=== PATIENT | female | born 1990 | race African-American/Black ===

== ENCOUNTER 2017-07-09 10:39 | Emergency (ER) | payer MEDICAID ==
[~2017-07-09] VITALS: Ht 154.9 cm; Wt 77.0 kg
[2017-07-09 10:44] VITALS: BP 99/64
[2017-07-09] MEDS ORDERED: ACETAMINOPHEN 325MG TABLET PO STA (11:17)
[2017-07-09 12:22] LABS: BASOPHILS % 0.6 % (0.0-2.0); EOSINOPHILS % 1.2 % (0.0-5.0); HEMATOCRIT. 39.8 % (36.0-48.0); HEMOGLOBIN. 13.7 g/dL (12.0-16.0); LYMPHOCYTES % 20.3 % (20.0-50.0); MEAN CORPUSCULAR HEMOGLOBIN 32.8 pg (28.0-32.0); MEAN CORPUSCULAR VOLUME 95.4 fL (81.0-99.0); MEAN PLATELET VOLUME 7.6 fl (7.4-10.4); MONOCYTES % 6.9 % (2.0-8.0); PLATELET 329 x1000/uL (130-400); RED BLOOD CELL COUNT 4.17 mill/uL (4.2-5.4); RED CELL DISTRIBUTION WIDTH 13.8 % (11.6-14.6)
[2017-07-09 12:25] LABS: CHLORIDE 106 mEq/L (98-107)
[2017-07-09 12:31] LABS: CARBON DIOXIDE 27 mEq/L (21-32)
[2017-07-09 12:33] LABS: HCG SCREEN NEGATIVE
[2017-07-09 12:38] LABS: CLARITY URINE CLOUDY (CLEAR); COLOR URINE YELLOW (YELLOW); KETONES URINE NEGATIVE (NEGATIVE); LEUKOCYTE ESTERASE URINE 2+ (NEGATIVE); NITRITE URINE NEGATIVE (NEGATIVE); OCCULT BLOOD URINE NEGATIVE (NEGATIVE); PH URINE 6.5 (4.5-8.0); PROTEIN URINE NEGATIVE (NEGATIVE); SPECIFIC GRAVITY URINE 1.008 (1.005-1.030); UROBILINOGEN URINE 0.2 E.U./dL (0.2-1.0)
[2017-07-09 12:56] LABS: *BARBITURATES SCREEN URINE NEGATIVE (NEGATIVE); *BENZODIAZEPINES SCREEN URINE NEGATIVE (NEGATIVE); *COCAINE SCREEN URINE NEGATIVE (NEGATIVE); CANNABINOID URINE SCREEN NEGATIVE (NEGATIVE); METHADONE URINE SCREEN NEGATIVE (NEGATIVE); OPIATES URINE SCREEN NEGATIVE (NEGATIVE); PHENCYCLIDINE URINE SCREEN NEGATIVE (NEGATIVE)
[2017-07-09 12:57] LABS: *AMPHETAMINES SCREEN URINE PRESUMTIVE POSITIVE (NEGATIVE)
== END 2017-07-09 13:49 | disposition home or self-care (01) ==
LOC: ER 10:58
DX: O26.891 Other specified pregnancy related conditions, first trimester (principal); Z3A.01 Less than 8 weeks gestation of pregnancy; F15.10 Other stimulant abuse, uncomplicated; R10.9 Unspecified abdominal pain; F17.290 Nicotine dependence, other tobacco product, uncomplicated
CPT/HCPCS: 36415; 80053; 80305; 81001; 83690; 84703; 85025; 99284

== ENCOUNTER 2017-08-20 07:28 | Emergency (ER) | payer MEDICAID ==
[~2017-08-20] VITALS: Ht 165.1 cm; Wt 55.0 kg
[2017-08-20 10:11] LABS: BASOPHILS % 0.8 % (0.0-2.0); EOSINOPHILS % 0.4 % (0.0-5.0); HEMATOCRIT. 37.8 % (36.0-48.0); HEMOGLOBIN. 12.8 g/dL (12.0-16.0); LYMPHOCYTES % 16.7 % (20.0-50.0); MEAN CORPUSCULAR HEMOGLOBIN 32.6 pg (28.0-32.0); MEAN CORPUSCULAR VOLUME 96.1 fL (81.0-99.0); MEAN PLATELET VOLUME 7.4 fl (7.4-10.4); MONOCYTES % 7.9 % (2.0-8.0); NEUTROPHILS % 74.2 % (40.0-76.0); PLATELET 317 x1000/uL (130-400); RED BLOOD CELL COUNT 3.94 mill/uL (4.2-5.4); RED CELL DISTRIBUTION WIDTH 13.7 % (11.6-14.6)
[2017-08-20 10:26] LABS: CHLORIDE 103 mEq/L (98-107)
[2017-08-20] MEDS ORDERED: IBUPROFEN 600MG TABLET PO ONE (11:15)
[2017-08-20] MEDS ORDERED: ACETAMINOPHEN 500MG TABLET PO ONE (11:15)
[2017-08-20 12:00] VITALS: BP 112/71
== END 2017-08-20 13:35 | disposition home or self-care (01) ==
LOC: ER 07:37
DX: K59.00 Constipation, unspecified (principal); R53.1 Weakness; R52 Pain, unspecified; Z59.0 Homelessness
CPT/HCPCS: 36415; 80053; 85025; 99284